=== PATIENT | male | born 1980 | race African-American/Black ===

== ENCOUNTER 2024-08-02 13:37 | Emergency (ER) | payer SELFPAY ==
[2024-08-02 13:40] VITALS: BP 144/90; PULSE 87; TEMP 36.6; O2SAT 99; BMI 26.6
--- NOTE | 2024-08-02 13:49 | ED.DENTAL1 ---
HPI - Dental/Oral General Chief complaint: Dental/Oral Stated complaint: DENTAL PAIN Time Seen by Provider: 08/02/24 13:38 Source: patient Mode of arrival: walk-in Limitations: no limitations History of Present Illness HPI Narrative: Patient is a 44-year-old male who presents to the emergency department for evaluation of pain and swelling in the right mandible. He has 2 broken teeth. He states tooth #30 has been broken for several weeks and tooth #31 has been broken for several months. In the last several days he has noted swelling and pain to the mandible. No drainage. No fevers or vomiting. Related Data Previous Rx's ?Medication ?Instructions ?Recorded clindamycin HCl 150 mg capsule 300 mg (2 x 150 mg) PO Q6H 10 days 08/02/24 #80 caps ketorolac 10 mg tablet 10 mg PO TID PRN pain #10 tabs 08/02/24 Allergies Allergy/AdvReac Type Severity Reaction Status Date / Time Penicillins Allergy Severe Swelling Verified 08/02/24 13:40 of Lip/Tongue/Throat Review of Systems ROS Constitutional Denies: fever or chills Eyes Denies: change in vision Ears, nose, mouth, and throat Reports: mouth pain; Denies: throat pain Cardiovascular Denies: chest pain Respiratory Denies: shortness of breath or cough Gastrointestinal Denies: nausea or vomiting Musculoskeletal Denies: back pain Integumentary/Breast Denies: rash Neurological Denies: headache Hematologic/Lymphatic Denies: easy bruising or easy bleeding PFSH PFS Social History Little interest or pleasure in doing things: not at all Feeling down, depressed, or hopeless: not at all Exam Narrative Exam Narrative: Gen.: Awake, alert, in no distress Head: Normocephalic, atraumatic ENT: Moist mucous membranes, tooth #30 is broken with root exposure, no visible dental abscess. Tooth #31 with partial fracture. No redness or swelling under the tongue. No trismus or drooling. Clear speech. Respiratory: No respiratory distress Extremities: Moves extremities equally Psych: Normal mood and affect Neuro: No focal neuro deficit Skin: Warm, dry, intact Constitutional Vital Signs, click to edit/add: Last Vital Signs Temp 98 F 08/02/24 13:40 Pulse 87 08/02/24 13:40 Resp 20 08/02/24 13:40 BP 144/90 H 08/02/24 13:40 Pulse Ox 99 08/02/24 13:40 O2 Del Method Room Air 08/02/24 13:40 Course Vital Signs Vital signs: Vital Signs Temperature 98 F 08/02/24 13:40 Pulse Rate 87 08/02/24 13:40 Respiratory Rate 20 08/02/24 13:40 Blood Pressure 144/90 H 08/02/24 13:40 Pulse Oximetry 99 08/02/24 13:40 Oxygen Delivery Method Room Air 08/02/24 13:40 Temperature 98 F 08/02/24 13:40 Pulse Rate 87 08/02/24 13:40 Respiratory Rate 20 08/02/24 13:40 Blood Pressure 144/90 H 08/02/24 13:40 Pulse Oximetry 99 08/02/24 13:40 Oxygen Delivery Method Room Air 08/02/24 13:40 MDM - Dental/Oral MDM Narrative Medical decision making narrative: Treated for dental pain with topical analgesia, clindamycin for home with Toradol. Referred to dentist. Return to the ER if symptoms change or worsen. SUPERVISED APC VISIT, PHYSICIAN ATTESTATION: Based on the medical record the care appears appropriate. ? Medical Records Attestation: I reviewed the patient's medical records. Discharge Plan Discharge Chief Complaint: Dental/Oral Clinical Impression: Toothache, Dental caries Patient Disposition: Home, Self-Care Time of Disposition Decision: 13:47 Condition: Good Prescriptions / Home Meds: New clindamycin HCl 150 mg capsule 300 mg PO Q6H 10 Days Qty: 80 0RF ketorolac 10 mg tablet 10 mg PO TID PRN (Reason: pain) Qty: 10 0RF Print Language: Indonesian Instructions: Toothache (ED) Referrals: Physician,Non-Staff, MD [Primary Care Provider] - 1 week
[2024-08-02] MEDS: BENZOCAINE 30 ML, lidocaine HCL 15 ML MM (14:32)
== END 2024-08-02 14:42 | disposition home or self-care (01) ==
PROVIDERS: Emergency Provider Emergency Medicine
DX: K02.9 Dental caries, unspecified (principal); K08.89 Other specified disorders of teeth and supporting structures
CPT/HCPCS: 99283